=== PATIENT | female | born 1950 | race Hispanic/Latino ===

== ENCOUNTER 2021-01-06 13:18 | Emergency (ER) | payer MEDICARE ==
[~2021-01-06] VITALS: Ht 157.5 cm; Wt 109.8 kg
[~2021-01-06 13:18] MED LIST: DIOVAN HCT 1601 EAC1 PO; METOPROLOL SUC100 MG PO
== END 2021-01-06 14:46 | disposition home or self-care (01) ==
LOC: FSED 13:41
DX: S09.90XA Unspecified injury of head, initial encounter (principal); S00.11XA Contusion of right eyelid and periocular area, initial encounter; W01.0XXA Fall on same level from slipping, tripping and stumbling without subsequent striking against object, initial encounter
CPT/HCPCS: 70450; 70486; 99283

== ENCOUNTER 2021-05-08 13:27 | Emergency (ER) | payer MEDICARE ==
[~2021-05-08] VITALS: Ht 157.5 cm; Wt 109.8 kg
[2021-05-08] MEDS ORDERED: ALBUTEROL/IPRATROPIUM 3 ML NEB NEB ONE (14:15)
[2021-05-08] MEDS ORDERED: CEFDINIR300 MG PO (15:47)
== END 2021-05-08 15:55 | disposition home or self-care (01) ==
LOC: FSED 14:03
DX: R05.9 Cough, unspecified (principal); J20.9 Acute bronchitis, unspecified; I10 Essential (primary) hypertension; Z86.16 Personal history of COVID-19; Z86.711 Personal history of pulmonary embolism
CPT/HCPCS: 71045; 80053; 82553; 83880; 84484; 85025; 85610; 87400; 93005; 99284; U0002

== ENCOUNTER → 2021-12-10 | Outpatient (CLI) | payer MEDICARE ==
[~2021-12-10] MED LIST changes: +ALIVE PREMIUM PO; +AMLODIPINE BESYL5 MG PO; +CEFDINIR300 MG PO; +DIOVAN160 MG PO; +ELIQUIS5 MG PO; +FEMARA2.5 MG PO; +FUROSEMIDE40 MG PO; +METFORMIN HCL500 MG PO; +METOPROLOL SUCC50 MG PO
== END ==
LOC: RAD 15:45
PROVIDERS: ATTEND Internal Medicine
DX: Z01.818 Encounter for other preprocedural examination (principal)
CPT/HCPCS: 71046

== ENCOUNTER → 2021-12-19 | Day surgery (SDC) | payer MEDICARE ==
[2021-12-10 16:28] LABS: BASOPHILS % 0.5 % (0.0-1.0); EOSINOPHILS # (AUTO) 0.2 (0.0-0.4); EOSINOPHILS % 2.7 % (0.0-6.0); HEMATOCRIT 40.7 % (34.2-44.1); HEMOGLOBIN 12.8 g/dL (12.0-16.0); LYMPHOCYTES # (AUTO) 2.4 (1.0-3.2); LYMPHOCYTES % 31.1 % (18.0-39.1); MEAN CORPUSCULAR HEMOGLOBIN 27.9 pg (28-32); MEAN CORPUSCULAR HGB CONC 31.4 g/dL (31-35); MEAN CORPUSCULAR VOLUME 88.7 fL (81-99); MONOCYTES # (AUTO) 0.8 (0.2-0.8); MONOCYTES % 10.2 % (4.4-11.3); NEUTROPHILS # (AUTO) 4.3 (2.1-6.9); NEUTROPHILS % 55.2 % (38.7-80.0); PLATELET COUNT 186 x10e3/uL (140-360); RED BLOOD COUNT 4.59 x10e6/uL (3.6-5.1); RED CELL DISTRIBUTION WIDTH 14.5 % (11.7-14.4)
[2021-12-10 16:59] LABS: ANION GAP 16.1 mmol/L (8-16); CALCIUM 8.9 mg/dL (8.4-10.2); CREATININE, SERUM 1.01 mg/dL (0.57-1.11); POTASSIUM 4.1 mmol/L (3.5-5.1)
[~2021-12-19] MED LIST changes: +HYOSCYAMINE SULFATE 0.5 MG/ML INJ ONE; +LIDOCAINE HCL 2% LOCAL INJ 5 ML SDV VIAL INJ ONE; +PROPOFOL IV EMULSION 10 MG/ML 20 ML VIAL ONE
[2021-12-19 13:45] VITALS: BP 157/67
== END | disposition home or self-care (01) ==
LOC: OR 09:36
PROVIDERS: ATTEND Internal Medicine Gastroenterology
DX: Z12.11 Encounter for screening for malignant neoplasm of colon (principal); K57.30 Diverticulosis of large intestine without perforation or abscess without bleeding; K64.8 Other hemorrhoids; E11.9 Type 2 diabetes mellitus without complications; I10 Essential (primary) hypertension; C50.919 Malignant neoplasm of unspecified site of unspecified female breast; I11.0 Hypertensive heart disease with heart failure; I50.9 Heart failure, unspecified; Z01.810 Encounter for preprocedural cardiovascular examination; Z01.812 Encounter for preprocedural laboratory examination; Z20.822 Contact with and (suspected) exposure to COVID-19; Z79.84 Long term (current) use of oral hypoglycemic drugs; Z79.02 Long term (current) use of antithrombotics/antiplatelets; Z79.899 Other long term (current) drug therapy; Z86.718 Personal history of other venous thrombosis and embolism
CPT/HCPCS: 0223U ×2; 36415 ×3; 80048; 82948; 85025; 93005; G0121; J1980; J2001; J2704; 45378

== ENCOUNTER → 2022-04-02 | Outpatient (CLI) | payer MEDICARE ==
[~2022-04-02] MED LIST changes: -HYOSCYAMINE SULFATE 0.5 MG/ML INJ ONE; -LIDOCAINE HCL 2% LOCAL INJ 5 ML SDV VIAL INJ ONE; -PROPOFOL IV EMULSION 10 MG/ML 20 ML VIAL ONE
== END ==
LOC: RAD 14:02
PROVIDERS: ATTEND Internal Medicine
DX: M25.552 Pain in left hip (principal)

== ENCOUNTER 2022-04-23 10:15 | Emergency (ER) | payer MEDICARE ==
[~2022-04-23] VITALS: Ht 157.5 cm; Wt 99.8 kg
[2022-04-23] MEDS ORDERED: OXYMETAZOLINE HCL 0.05% NAS 1 SPRAY BTL STA (10:29)
[2022-04-23] MEDS ORDERED: SILVER NITRATE SWABS ONE (10:38)
[2022-04-23] MEDS ORDERED: OXYMETAZOLINE HCL 0.05% NAS 1 SPRAY BTL ONE (10:44)
[2022-04-23 11:29] VITALS: BP 158/90
== END 2022-04-23 11:32 | disposition home or self-care (01) ==
LOC: FSED 10:28
DX: R04.0 Epistaxis (principal); I16.0 Hypertensive urgency
CPT/HCPCS: 99283

== ENCOUNTER 2023-02-22 09:12 | Outpatient (RCR) | payer MEDICARE | END 2023-03-23 | LOC: PT 09:12 | PROVIDERS: ATTEND Specialist | DX: M17.12 Unilateral primary osteoarthritis, left knee (principal) ==

== ENCOUNTER 2024-04-01 21:26 | Inpatient (IN) | payer MEDICARE ==
[~2024-04-01] VITALS: Ht 157.5 cm; Wt 99.8 kg
[2024-04-01 21:49] VITALS: TEMP 98.8
[2024-04-01] MEDS ORDERED: SODIUM CHLORIDE FLUSH 10 ML SYR IV PRN (22:00)
[2024-04-01 22:15] LABS: BASOPHILS % 0.5 % (0.0-1.0); EOSINOPHILS # (AUTO) 0.3 (0.0-0.4); EOSINOPHILS % 3.8 % (0.0-6.0); HEMATOCRIT 43.2 % (34.2-44.1); HEMOGLOBIN 13.4 g/dL (12.0-16.0); LYMPHOCYTES # (AUTO) 2.6 (1.0-3.2); MEAN CORPUSCULAR HEMOGLOBIN 27.7 pg (28-32); MEAN CORPUSCULAR VOLUME 89.4 fL (81-99); MONOCYTES # (AUTO) 0.7 (0.2-0.8); MONOCYTES % 9.3 % (4.4-11.3); NEUTROPHILS # (AUTO) 3.9 (2.1-6.9); NEUTROPHILS % 51.3 % (38.7-80.0); PLATELET COUNT 185 x10e3/uL (140-360); RED BLOOD COUNT 4.83 x10e6/uL (3.6-5.1); RED CELL DISTRIBUTION WIDTH 14.9 % (11.7-14.4); WHITE BLOOD COUNT 7.55 x10e3/uL (4.8-10.8)
[2024-04-01 22:23] LABS: INR 0.93
[2024-04-01 22:24] LABS: PARTIAL THROMBOPLASTIN TIME 24.1 seconds (23.8-35.5)
[2024-04-01] MEDS: NICARDIPINE 20MG/200ML PREMIX 200 ML IV SCH (22:28)
[2024-04-01 22:38] LABS: TROPONIN I 0.003 ng/mL (0-0.300)
[2024-04-01 23:10] LABS: ANION GAP 17.1 mmol/L (8-16); BILIRUBIN,TOTAL 0.3 mg/dL (0.2-1.2); CALCIUM 9.9 mg/dL (8.4-10.2); CREATININE, SERUM 1.16 mg/dL (0.57-1.11); POTASSIUM 4.1 mmol/L (3.5-5.1)
[2024-04-02] VITALS (8 sets, daily range): BP systolic 149–195; BP diastolic 48–74; PULSE 83–93; RESP 18–20; TEMP 97.4–99.3; O2SAT 97–99
[2024-04-02] MEDS: HYDRALAZINE HCL 20 MG/ML VIAL IV STA (00:35)
[2024-04-02] MEDS ORDERED: HYDRALAZINE HCL 20 MG/ML VIAL ONE (00:38)
[2024-04-02] MEDS ORDERED: SODIUM CHLORIDE FLUSH 10 ML SYR INJ PRN (01:00)
[2024-04-02] MEDS: HYDRALAZINE HCL 20 MG/ML VIAL IV PRN (09:47)
[2024-04-02] MEDS ORDERED: DEXTROSE 50% SYRINGE 50 ML IV PRN (12:30)
[2024-04-02] MEDS: METOPROLOL SUCCINATE 50 MG TAB XL PO SCH (15:26)
[2024-04-02] MEDS: AMLODIPINE BESYLATE 5 MG TAB PO SCH (15:26)
[2024-04-02] MEDS: INSULIN LISPRO 100 UNIT/1 ML 3ML VIAL SQ SCH (16:09)
[2024-04-02 16:33] LABS: CLARITY,URINE CLEAR (CLEAR); COLOR,URINE YELLOW (YELLOW); GLUCOSE, URINE NEGATIVE (NEGATIVE); KETONES,URINE TRACE (NEGATIVE); LEUKOCYTE ESTERASE ,URINE TRACE (NEGATIVE); NITRITE,URINE NEGATIVE (NEGATIVE); PH,URINE 5.5 (5 - 7); PROTEIN,URINE DIPSTICK TRACE (NEGATIVE); URINE UROBILINOGEN 0.2 mg/dL (0.2 - 1)
[2024-04-02 16:34] LABS: BILIRUBIN,URINE NEGATIVE (NEGATIVE)
[2024-04-02 16:36] LABS: BACTERIA,URINE MODERATE /HPF; EPITHELIAL CELLS,URINE FEW /LPF; MUCUS,URINE FEW (RARE); RBC,URINE 0-5 /HPF (0-5)
[2024-04-02] MEDS: APIXABAN 2.5 MG TABLET PO SCH (17:46)
[2024-04-02] MEDS: ACETAMINOPHEN/CODEINE 300MG - 30MG TAB PO PRN (22:14)
[2024-04-03] VITALS (9 sets, daily range): BP systolic 154–194; BP diastolic 49–74; PULSE 67–82; RESP 18–21; TEMP 98–99.8; O2SAT 94–98
[2024-04-03 05:57] LABS: BASOPHILS % 0.4 % (0.0-1.0); EOSINOPHILS # (AUTO) 0.2 (0.0-0.4); EOSINOPHILS % 2.4 % (0.0-6.0); HEMATOCRIT 38.3 % (34.2-44.1); HEMOGLOBIN 12.2 g/dL (12.0-16.0); LYMPHOCYTES # (AUTO) 2.2 (1.0-3.2); LYMPHOCYTES % 30.2 % (18.0-39.1); MEAN CORPUSCULAR HEMOGLOBIN 28.1 pg (28-32); MEAN CORPUSCULAR HGB CONC 31.9 g/dL (31-35); MEAN CORPUSCULAR VOLUME 88.2 fL (81-99); MONOCYTES # (AUTO) 0.6 (0.2-0.8); MONOCYTES % 8.2 % (4.4-11.3); NEUTROPHILS # (AUTO) 4.2 (2.1-6.9); NEUTROPHILS % 58.5 % (38.7-80.0); PLATELET COUNT 180 x10e3/uL (140-360); RED BLOOD COUNT 4.34 x10e6/uL (3.6-5.1); RED CELL DISTRIBUTION WIDTH 14.8 % (11.7-14.4); WHITE BLOOD COUNT 7.16 x10e3/uL (4.8-10.8)
[2024-04-03 06:31] LABS: ALBUMIN 3.3 g/dL (3.5-5.0); ALBUMIN/GLOBULIN RATIO 1.1 (0.8-2.0); ANION GAP 12.7 mmol/L (8-16); BILIRUBIN,TOTAL 0.4 mg/dL (0.2-1.2); CALCIUM 9.1 mg/dL (8.4-10.2); CREATININE, SERUM 0.92 mg/dL (0.57-1.11); POTASSIUM 3.7 mmol/L (3.5-5.1); TOTAL PROTEIN 6.4 g/dL (6.5-8.1)
[2024-04-03] MEDS: LETROZOLE 2.5 MG PO SCH (09:00)
[2024-04-03] MEDS ORDERED: AMLODIPINE BESYLATE 5 MG TAB PO SCH (09:00)
[2024-04-03] MEDS ORDERED: METOPROLOL SUCCINATE 50 MG TAB XL PO SCH (09:00)
[2024-04-03] MEDS: VALSARTAN 160 MG TAB PO SCH (09:39)
[2024-04-03] MEDS: FUROSEMIDE 40 MG TAB PO SCH (10:59)
[2024-04-03] MEDS: ONDANSETRON HCL INJ 2MG/ML 2ML 2 MG/ML VIAL IV PRN (11:43)
[2024-04-03 12:26] LABS: CHOL/HDL RATIO 4.1 (3.0-3.6)
[2024-04-03] MEDS: METFORMIN HCL 500 MG TAB PO SCH (17:37)
[2024-04-03] MEDS ORDERED: IOPAMIDOL 370 MG/ML 100 ML INFUS..BTL INJ ONE (19:16)
[2024-04-03] MEDS ORDERED: SODIUM CHLORIDE 0.9% 0 ML ONE (19:16)
[2024-04-04 03:07] VITALS: BP 142/89; PULSE 78; RESP 18; TEMP 98.6; O2SAT 97
[2024-04-04 08:00] VITALS: BP 159/69; PULSE 79; RESP 17; TEMP 98; O2SAT 97
[2024-04-04] MEDS ORDERED: IOPAMIDOL 370 MG/ML 100 ML INFUS..BTL INJ ONE (11:28)
[2024-04-04 12:06] VITALS: BP 175/68; PULSE 68; RESP 17; TEMP 97.8; O2SAT 96
[2024-04-04 16:00] VITALS: BP 145/55; PULSE 67; RESP 18; TEMP 97.5; O2SAT 97
[2024-04-04 20:00] VITALS: BP 160/65; PULSE 69; RESP 18; TEMP 97.7; O2SAT 96
[2024-04-04 21:00] VITALS: BP 160/65; PULSE 69; RESP 18; TEMP 97.7; O2SAT 96
[2024-04-05] VITALS: BP 170/70; PULSE 68; RESP 16; TEMP 98.1; O2SAT 93
[2024-04-05] MEDS ORDERED: IOPAMIDOL 370 MG/ML 100 ML INFUS..BTL INJ ONE (01:13)
[2024-04-05 05:26] VITALS: BP 168/60; PULSE 65; RESP 18; TEMP 98.1; O2SAT 98
[2024-04-05 06:30] LABS: ANION GAP 11.6 mmol/L (8-16); CALCIUM 8.8 mg/dL (8.4-10.2); CREATININE, SERUM 1.02 mg/dL (0.57-1.11); POTASSIUM 3.6 mmol/L (3.5-5.1)
[2024-04-05] MEDS ORDERED: SODIUM CHLORIDE 0.9% 100 ML ONE (07:18)
[2024-04-05 08:00] VITALS: BP 149/66; PULSE 72; RESP 18; TEMP 98.4; O2SAT 96; O2SAT 98
[2024-04-05] MEDS ORDERED: ATORVASTATIN CA20 MG PO (11:40)
[2024-04-05] MEDS ORDERED: HYDRALAZINE HCL25 MG PO (11:40)
[2024-04-05] MEDS ORDERED: ELIQUIS5 MG PO (11:40)
[2024-04-05 12:00] VITALS: BP 142/64; PULSE 67; RESP 19; TEMP 97.9; O2SAT 96
[2024-04-05] MEDS ORDERED: APIXABAN 5 MG TABLET PO SCH (17:00)
== END 2024-04-05 13:57 | disposition home health service (06) | DRG 65 ==
LOC: ER 21:32 → ERHOLD 04-02 00:57 → MED/SURG2 04-02 01:47 → OBSVTOIN 04-03 12:46
PROVIDERS: ADMIT Internal Medicine; ATTEND Internal Medicine
PROC: 05HB33Z Insertion of Infusion Device into Right Basilic Vein, Percutaneous Approach (ICD-10-PCS; principal; 2024-04-03)
DX: I63.89 Other cerebral infarction (principal); I67.4 Hypertensive encephalopathy; N17.9 Acute kidney failure, unspecified; Z68.41 Body mass index [BMI] 40.0-44.9, adult; I16.0 Hypertensive urgency; I10 Essential (primary) hypertension; R47.01 Aphasia; I65.01 Occlusion and stenosis of right vertebral artery; E66.01 Morbid (severe) obesity due to excess calories; E78.00 Pure hypercholesterolemia, unspecified; E11.9 Type 2 diabetes mellitus without complications; Z79.84 Long term (current) use of oral hypoglycemic drugs; Z91.148 Patient's other noncompliance with medication regimen for other reason; Z86.711 Personal history of pulmonary embolism; Z86.718 Personal history of other venous thrombosis and embolism; Z79.01 Long term (current) use of anticoagulants; Z85.3 Personal history of malignant neoplasm of breast; Z92.3 Personal history of irradiation; Z79.899 Other long term (current) drug therapy
CPT/HCPCS: 36415; 36568; 70450; 70496; 70498; 70551; 71045; 80048; 80053; 80061; 81001; 82948; 83880; 84484; 85025; 85610; 85730; 87086; 93005; 93306; 99284; G0378; J0360; J0696; J2405; J7050; Q9967

== ENCOUNTER 2024-05-08 11:12 | Emergency (ER) | payer MEDICARE ==
[~2024-05-08] VITALS: Ht 157.5 cm; Wt 102.1 kg
[~2024-05-08 11:12] MED LIST changes: +ATORVASTATIN CA20 MG PO; +HYDRALAZINE HCL25 MG PO
[2024-05-08 11:35] VITALS: TEMP 97.6
[2024-05-08 13:08] LABS: BASOPHILS % 0.4 % (0.0-1.0); EOSINOPHILS # (AUTO) 0.2 (0.0-0.4); EOSINOPHILS % 1.9 % (0.0-6.0); HEMATOCRIT 40.9 % (34.2-44.1); HEMOGLOBIN 13.1 g/dL (12.0-16.0); LYMPHOCYTES # (AUTO) 1.6 (1.0-3.2); LYMPHOCYTES % 14.3 % (18.0-39.1); MEAN CORPUSCULAR HEMOGLOBIN 27.9 pg (28-32); MEAN CORPUSCULAR VOLUME 87.2 fL (81-99); MONOCYTES # (AUTO) 0.8 (0.2-0.8); MONOCYTES % 7.2 % (4.4-11.3); NEUTROPHILS # (AUTO) 8.6 (2.1-6.9); NEUTROPHILS % 75.8 % (38.7-80.0); PLATELET COUNT 182 x10e3/uL (140-360); RED BLOOD COUNT 4.69 x10e6/uL (3.6-5.1); RED CELL DISTRIBUTION WIDTH 14.1 % (11.7-14.4); WHITE BLOOD COUNT 11.29 x10e3/uL (4.8-10.8)
[2024-05-08 13:11] LABS: BILIRUBIN,URINE SMALL (NEGATIVE); CLARITY,URINE CLOUDY (CLEAR); COLOR,URINE RED (YELLOW); GLUCOSE, URINE NEGATIVE (NEGATIVE); KETONES,URINE NEGATIVE (NEGATIVE); LEUKOCYTE ESTERASE ,URINE LARGE (NEGATIVE); NITRITE,URINE NEGATIVE (NEGATIVE); PH,URINE 6 (5 - 7); PROTEIN,URINE DIPSTICK >=300 (NEGATIVE); URINE UROBILINOGEN 1 mg/dL (0.2 - 1)
[2024-05-08 13:26] LABS: WBC,URINE (MAN) 0-5 /HPF (0-5)
[2024-05-08 13:27] LABS: BACTERIA,URINE RARE /HPF; EPITHELIAL CELLS,URINE RARE /LPF; RBC,URINE >50 /HPF (0-5)
[2024-05-08 13:34] LABS: ALBUMIN 3.8 g/dL (3.5-5.0); ALBUMIN/GLOBULIN RATIO 1.1 (0.8-2.0); ANION GAP 14.5 mmol/L (8-16); BILIRUBIN,TOTAL 0.5 mg/dL (0.2-1.2); CALCIUM 9.2 mg/dL (8.4-10.2); CREATININE, SERUM 1.15 mg/dL (0.57-1.11); POTASSIUM 3.5 mmol/L (3.5-5.1); TOTAL PROTEIN 7.4 g/dL (6.5-8.1)
[2024-05-08] MEDS ORDERED: IOPAMIDOL 370 MG/ML 100 ML INFUS..BTL INJ ONE (13:44)
[2024-05-08 15:07] VITALS: PULSE 77; RESP 15; O2SAT 98
[2024-05-08] MEDS ORDERED: CEFDINIR300 MG PO (15:32)
== END 2024-05-08 16:00 | disposition home or self-care (01) ==
LOC: ER 11:29
DX: R30.0 Dysuria (principal); N39.0 Urinary tract infection, site not specified; R31.9 Hematuria, unspecified; I10 Essential (primary) hypertension; E11.9 Type 2 diabetes mellitus without complications; Z85.3 Personal history of malignant neoplasm of breast; Z86.718 Personal history of other venous thrombosis and embolism; Z79.01 Long term (current) use of anticoagulants
CPT/HCPCS: 36415; 74177; 80053; 81001; 85025; 99284; Q9967